=== PATIENT | male | born 1980 | race Two or more races ===

== ENCOUNTER 2016-08-25 19:07 | Emergency (ER) | payer MEDICAID, OTHER ==
[~2016-08-25] VITALS: Ht 170.2 cm; Wt 81.6 kg
[2016-08-25 20:21] LABS: Basophils # (auto) 0 uL; Basophils % (auto) 0.4 % (0.0-2.0); Eosinophils # (auto) 0.1 uL; Hematocrit 38.9 % (41.0-53.0); Hemoglobin 12.9 g/dL (13.5-17.5); Lymphocytes # (auto) 1.9 uL; Lymphocytes % (auto) 30.4 % (10.0-50.0); Mean Corpuscular Hemoglobin 29.8 pg (28.0-32.0); Mean Corpuscular Volume 90.1 fL (80.0-100.0); Mean Platelet Volume 8.2 fL (7.4-10.4); Monocytes # (auto) 0.8 uL; Monocytes % (auto) 12.8 % (0.0-12.0); Neutrophils # (auto) 3.4 uL; Neutrophils % (auto) 55.4 % (37.0-80.0); Platelet Count (auto) 326 10^3/uL (140-450); White Blood Cell 6.2 10^3/uL (4.4-10.8)
[2016-08-25 20:22] LABS: Urine Bilirubin Negative (Negative); Urine Blood Negative /uL (Negative); Urine Color Yellow (Yellow); Urine Glucose Normal (Normal); Urine Ketone Negative (Negative); Urine Mucus FEW (None Seen); Urine Nitrite Negative (Negative); Urine RBC <1 /hpf (0 - 3); Urine Squamous Epithelial Cell FEW /hpf (<5); Urine Urobilinogen Normal (Negative)
[2016-08-25 20:41] LABS: Albumin 3.7 g/dL (3.4-5.0); BUN/Creatinine Ratio 18.9; Calcium 8.3 mg/dL (8.5-10.1); Potassium 3.8 mmol/L (3.5-5.1)
[2016-08-25 20:47] LABS: Bilirubin, Total 0.3 mg/dL (0.2-1.0); Total Protein 7.2 g/dL (6.4-8.2)
[2016-08-25] MEDS ORDERED: SODIUM CHLORIDE 0.9% 1,000 ML IV ONE (23:45)
[2016-08-25] MEDS ORDERED: LORazepam 2MG/ML-1ML VIAL IV ONE (23:45)
[2016-08-26 00:05] VITALS: BP 123/72
== END 2016-08-26 01:23 | disposition home or self-care (01) ==
LOC: ER 19:14
DX: K29.70 Gastritis, unspecified, without bleeding (principal); R45.1 Restlessness and agitation; F19.10 Other psychoactive substance abuse, uncomplicated
CPT/HCPCS: 36415; 74176; 80053; 81001; 83690; 85025; 96361; 96374; 99285; G0434; J2060

== ENCOUNTER 2024-07-31 23:32 | Emergency (ER) | payer MEDICAID ==
[~2024-07-31] VITALS: Ht 170.2 cm; Wt 80.0 kg
[2024-07-31 23:55] VITALS: BP 126/84; PULSE 90; RESP 14; O2SAT 97
== END 2024-08-01 04:11 | disposition left against medical advice (07) ==
LOC: ER 23:32
DX: H57.12 Ocular pain, left eye (principal); Z53.21 Procedure and treatment not carried out due to patient leaving prior to being seen by health care provider